=== PATIENT | female | born 1955 | race Caucasian/White ===

== ENCOUNTER 2017-04-18 00:28 | Day surgery (SDC) | payer OTHER ==
[~2017-04-18 00:28] MED LIST: ASCO500 PO; B-121000 MC1 SL; BIOTIN1000 MCG PO; CENTRUM SILVER1 EAC3 PO; CHOL10002 PO; CLON.5 PO; CYAN1000 PO; FURO40 PO; Fludrocortison0.1 MG PO; HYDCOR20 PO; MIDO5 PO; NAPR500EC PO; OXYACE5T PO; Omeprazole20 M1 PO; VITAMIN D-32000 UNIT PO; VITAMINS; XARELTO10 MG PO; XARELTO20 MG PO
[2017-10-15] MEDS ORDERED: PROBIOTIC1 EAC3 PO (16:59)
== END 2017-04-18 10:27 | disposition home or self-care (01) ==
LOC: ATC 00:28
DX: E27.3 Drug-induced adrenocortical insufficiency (principal); I95.1 Orthostatic hypotension; K21.9 Gastro-esophageal reflux disease without esophagitis; Z87.891 Personal history of nicotine dependence
CPT/HCPCS: 36415; 80400; 82533; 96372; J0834

== ENCOUNTER 2017-10-30 06:04 | Day surgery (SDC) | payer OTHER ==
[~2017-10-30] VITALS: Ht 165.1 cm; Wt 72.6 kg
[~2017-10-30 06:04] MED LIST changes: +PROBIOTIC1 EAC3 PO
== END 2017-10-30 09:23 | disposition home or self-care (01) ==
LOC: ORSCMMR 06:04
PROVIDERS: Surgery
PROC: 0HB0XZZ Excision of Scalp Skin, External Approach (ICD-10-PCS; principal; 2017-10-30 07:30)
PROC: 0HQ0XZZ Repair Scalp Skin, External Approach (ICD-10-PCS; principal; 2017-10-30 07:30)
DX: L72.11 Pilar cyst (principal); E11.22 Type 2 diabetes mellitus with diabetic chronic kidney disease; N18.9 Chronic kidney disease, unspecified; Z87.891 Personal history of nicotine dependence; K21.9 Gastro-esophageal reflux disease without esophagitis; Z79.899 Other long term (current) drug therapy
CPT/HCPCS: 82947; 88304; J0690; J1100; J2250; J2405; J3010; J7120

== ENCOUNTER → 2018-04-26 | Outpatient (CLI) | payer OTHER ==
[2018-04-26 15:38] LABS: Alanine Aminotransfer (ALT/SGP 21 U/L (12-78); Albumin, Blood 3.9 g/dL (3.4-5.0); Albumin/Globulin Ratio 1.3 (0.8-1.8); Alk Phos 85 U/L (50-136); Amylase, Blood 48 U/L (25-115); Anion Gap 7 mmol/L (6-16); Aspartate Aminotrans (AST/SGOT 12 U/L (12-37); Bilirubin, Total 0.7 mg/dL (0.1-1.0); Blood Urea Nitrogen 15 mg/dL (8-24); Bun/Creatinine Ratio 19.3 (12.0-20.0); CO2, Blood 25 mmol/L (21-32); Calcium, Blood 9.2 mg/dL (8.5-10.1); Chloride, Blood 106 mmol/L (98-108); Creatinine, Blood 0.78 mg/dL (0.40-1.00); Globulin, Blood 3.1 g/dL (2.2-4.0); Glomerular Filtration Rate >60 (60-); Glucose, Blood 89 mg/dL (70-99); Potassium, Blood 4.6 mmol/L (3.5-5.5); Sodium, Blood 138 mmol/L (136-145)
== END | disposition home or self-care (01) ==
LOC: LAB SHORT 14:21 → LAB 14:21
PROVIDERS: Hospitalist
DX: R10.13 Epigastric pain (principal)
CPT/HCPCS: 80053; 82150; 83690

== ENCOUNTER 2019-10-24 19:12 | Inpatient (IN) | payer OTHER ==
[~2019-10-24] VITALS: Ht 165.1 cm; Wt 81.2 kg
[2019-10-24] MEDS ORDERED: IBUP200 PO (19:36)
[2019-10-24 20:00] LABS: Hematocrit 39.6 % (33.0-51.0); Hemoglobin 13.2 g/dL (11.5-16.0); Mean Corpuscular HGB 31.3 pg (26.0-34.0); Mean Corpuscular HGB Conc 33.3 g/dL (31.5-36.5); Mean Corpuscular Volume 94 fL (80-100); Mean Platelet Volume 9.8 fL (9.1-12.4); Platelet Count 175 K/mm3 (150-400); RDW Coefficient Variation 12.1 % (11.7-14.2); RDW Standard Deviation 42.1 fL (35.1-46.3); Red Blood Cell Count 4.22 M/mm3 (3.80-5.20)
[2019-10-24 20:04] LABS: Source, Urine Catheter
[2019-10-24 20:07] LABS: Appearance, Urine Clear (Clear); Bilirubin, Urine Neg (Neg); Blood, Urine Neg (Neg); Color, Urine Yellow (P-Yellow); Glucose Qualitative, Urine Neg (Neg); Ketones, Urine 4+ (Neg); Leukocyte Esterase, Urine Neg (Neg); Nitrite, Urine Neg (Neg); Protein, Urine 2+ (Neg); Urobilinogen, Urine 1+ (Normal)
[2019-10-24 20:11] LABS: Alanine Aminotransfer (ALT/SGP 21 U/L (12-78); Albumin, Blood 3.4 g/dL (3.4-5.0); Alk Phos 74 U/L (50-136); Anion Gap 8 mmol/L (6-16); Aspartate Aminotrans (AST/SGOT 17 U/L (12-37); Bilirubin, Total 0.7 mg/dL (0.1-1.0); Blood Urea Nitrogen 16 mg/dL (8-24); Bun/Creatinine Ratio 17.4 (12.0-20.0); CO2, Blood 22 mmol/L (21-32); Calcium, Blood 8.5 mg/dL (8.5-10.1); Chloride, Blood 107 mmol/L (98-108); Creatinine, Blood 0.92 mg/dL (0.40-1.00); Globulin, Blood 3.5 g/dL (2.2-4.0); Glomerular Filtration Rate >60 (60-); Glucose, Blood 125 mg/dL (70-99); Potassium, Blood 3.1 mmol/L (3.5-5.5); Sodium, Blood 137 mmol/L (136-145); Total Protein, Blood 6.9 g/dL (6.4-8.2)
[2019-10-24 20:17] LABS: Bacteria Rare /hpf; Mucus Light (0-Heavy); Red Blood Cells, Urine Not Seen /hpf (0-2); Squamous Epithelial Cells Rare /hpf (Few); White Blood Cells, Urine 0-2 /hpf (0-5)
[2019-10-24 20:21] LABS: BAND PERCENT MAN 31 % (0-8); BASOPHILS PERCENT MAN 0 % (0-2); EOSINOPHILS PERCENT MAN 0 % (0-6); LYMPHOCYTES ABSOLUTE MAN 0.15 K/mm3 (0.84-5.20); LYMPHOCYTES PERCENT MAN 2 % (21-46); MONOCYTES ABSOLUTE MAN 0.38 K/mm3 (0.16-1.47); MONOCYTES PERCENT MAN 5 % (4-13); NEUTROPHILS ABSOLUTE MAN 7.06 K/mm3 (1.96-9.15); SEG NEUTROPHILS PERCENT MAN 62 % (41-73); TOTAL CELLS COUNTED 100
[2019-10-24] MEDS ORDERED: MIDO5 PO (22:09)
[2019-10-24 23:47] LABS: Adenovirus Not Detected (NOT DETECT); Bordetella pertussis Not Detected (NOT DETECT); Chlamydophila pneumoniae Not Detected (NOT DETECT); Coronavirus 229E Not Detected (NOT DETECT); Coronavirus HKU1 Not Detected (NOT DETECT); Coronavirus NL63 Not Detected (NOT DETECT); Coronavirus OC43 Not Detected (NOT DETECT); Human Metapneumovirus Not Detected (NOT DETECT); Human Rhinovirus/Enterovirus Not Detected (NOT DETECT); Influenza A/2009-H1 Not Detected (NOT DETECT); Influenza A/H1 Not Detected (NOT DETECT); Influenza A/H3 Not Detected (NOT DETECT); Influenza B Not Detected (NOT DETECT); Mycoplasma pneumoniae Not Detected (NOT DETECT); Parainfluenza Virus 1 Not Detected (NOT DETECT); Parainfluenza Virus 2 Not Detected (NOT DETECT); Parainfluenza Virus 3 Not Detected (NOT DETECT); Parainfluenza Virus 4 Not Detected (NOT DETECT); Respiratory Syncytial Virus Not Detected (NOT DETECT); SARS-Cov-2 (COVID-19), BioFire Not Detected (NOT DETECT)
[2019-10-25 00:14] LABS: Adenovirus F 40/41 Not Detected (NOT DETECT); Astrovirus Not Detected (NOT DETECT); Campylobacter Sp Not Detected (NOT DETECT); Cryptosporidium Not Detected (NOT DETECT); Cyclospora Cayetanensis Not Detected (NOT DETECT); E. Coli O157 Not Detected (NOT DETECT); Entamoeba Histolytica Not Detected (NOT DETECT); Enteroaggregative E. coli-EAEC Not Detected (NOT DETECT); Enteropathogenic E. coli-EPEC Not Detected (NOT DETECT); Enterotoxigenic E. coli-ETEC Not Detected (NOT DETECT); Giardia Lamblia Not Detected (NOT DETECT); Norovirus GI/GII Not Detected (NOT DETECT); Plesiomonas Shigelloides Not Detected (NOT DETECT); Rotavirus A Not Detected (NOT DETECT); Salmonella Sp Detected (NOT DETECT); Sapovirus Not Detected (NOT DETECT); Shiga Toxin-prod E. coli-STEC Not Detected (NOT DETECT); Shigella/Enteroin E. coli-EIEC Not Detected (NOT DETECT); Vibrio Cholerae Not Detected (NOT DETECT); Vibrio Sp Not Detected (NOT DETECT); Yersinia Enterocolitica Not Detected (NOT DETECT)
[2019-10-25 05:10] LABS: Hematocrit 34.9 % (33.0-51.0); Hemoglobin 11.6 g/dL (11.5-16.0); Mean Corpuscular HGB 31.3 pg (26.0-34.0); Mean Corpuscular HGB Conc 33.2 g/dL (31.5-36.5); Mean Corpuscular Volume 94 fL (80-100); Mean Platelet Volume 9.8 fL (9.1-12.4); Platelet Count 143 K/mm3 (150-400); RDW Coefficient Variation 12.4 % (11.7-14.2); RDW Standard Deviation 43.1 fL (35.1-46.3); Red Blood Cell Count 3.71 M/mm3 (3.80-5.20); White Blood Cell Count 3.35 K/mm3 (4.00-11.30)
[2019-10-25 05:43] LABS: BAND PERCENT MAN 39 % (0-8); BASOPHILS ABSOLUTE MAN 0.03 K/mm3 (0.00-0.23); BASOPHILS PERCENT MAN 1 % (0-2); EOSINOPHILS PERCENT MAN 0 % (0-6); LYMPHOCYTES ABSOLUTE MAN 0.13 K/mm3 (0.84-5.20); LYMPHOCYTES PERCENT MAN 4 % (21-46); MONOCYTES ABSOLUTE MAN 0.26 K/mm3 (0.16-1.47); MONOCYTES PERCENT MAN 8 % (4-13); NEUTROPHILS ABSOLUTE MAN 2.91 K/mm3 (1.96-9.15); SEG NEUTROPHILS PERCENT MAN 48 % (41-73); TOTAL CELLS COUNTED 100
--- NOTE | 2019-10-25 06:44 | NUR ---
END OF SHIFT SUMMARY PATIENT WAS ADMITTED AT 0221 THIS MORNING FOR HYPOVOLEMIA R/T DIARRHEA. THE PATIENT'S STOOL SAMPLE CAME PACK POSITIVE FOR SALMONELLA. THE PATIENT IS ALERT AND ORIENTED. SHE IS DENYING PAIN. SOME DISCOMFORT RELATED TO SHIVERING WHEN ICE PACKS APPLIED. FENTANYL GIVEN X 1. HER BP IS MARGINAL AT TIMES. NSR WITH A HR IN THE 70S-80S. TMAX WAS 102.3 F. THE PATIENT IS NOW NORMOTHERMIC. 1 GRAM OF TYLENOL GIVEN. PATIENT DENIES ABDOMINAL PAIN OR TENDERNESS. RECTAL TUBE IN PLACE WITH OVER 1 L OUTPUT THIS SHIFT. ONE INCONTINENT URINE THIS AM. NPO AT THIS TIME. SKIN IS INTACT. PIV X [address] LR INFUSING AT 200 MLS/HR. POTASSIUM WAS LOW IN THE ER. IT IS BEING RECHECKED NOW THAT THE FIRST REPLACEMENT BAG HAS FINISHED.
[2019-10-25 07:44] LABS: Bun/Creatinine Ratio 15.8 (12.0-20.0); Creatinine, Blood 1.01 mg/dL (0.40-1.00); Potassium, Blood 3.5 mmol/L (3.5-5.5)
--- NOTE | 2019-10-25 08:48 | NUR ---
ASSUMED CARE OF PT AT 0700. REPORT FROM KALEIGH ESCOBAR. PT RESTING IN BED. WAKES c VERBAL STIMULI. A&OX 3. ANSWERS QUESTIONS APPROPRIATELY. DENIES COMPLAINTS. REPORTS "BUBBLING" IN STOMACH. ABD SOFT, NON TENDER. BT X 4. LR INFUSING AT 200 ML/HR. PT P/W/D. VSS. RECTAL TUBE c LIQUID GREEN/BROWN STOOL OUT. DR SHEARER ROUNDED THIS AM, OK FOR PO FLUIDS. PT STATUS CHANGED TO MED s TELE. WILL CONTINUE TO MONITOR.
--- NOTE | 2019-10-25 09:40 | NUR ---
REPORT TO VINNY ESCOBAR. PT TRANSFERRED TO MEDICAL FLOOR VIA BED. ALL BELONGINGS c PT.
--- NOTE | 2019-10-25 17:41 | NUR ---
SHIFT SUMMARY. 0968 PT TRANSFERED FROM ICU TO MEDICAL FLOOR VIA BED, SLIDE TRANSFERED TO MEDICAL FLOOR BED WITHOUT ISSUE. RECTAL TUBE IN PLACE, PATENT, DRAINING LARGE AMOUNT OF GREEN LIQUID STOOL, MILD LEAKAGE AROUND TUBE. PT REPORTS INTERMITTENT ABD CRAMPING THAT IS TOLERABLE. PT DENIES N/V/SOB. PT REPORTS POOR APPETITE, PT TOLERATED SOME CLEAR LIQUIDS FOR LUNCH. IV HYDRATION CONTINUES TO INFUSE WITHOUT ISSUE. NO NEW CHANGES OR CONCERNS.
--- NOTE | 2019-10-26 04:34 | NUR ---
SHIFT SUMMARY LYING IN LOW FOWLERS WITH EYES OPEN. FLEXISEAL BAG FULL, NEW ONE PLACED. NEW BAG IMMEDIATELY HALF FULL. NEW BAG NOT AVAILABLE ON UNIT, CALLED Angelina ORTIZ RN IN ICU WHO SENT A NEW BAG. PARTIAL LINEN CHANGE COMPLETED AFTER ANA CARE. TOLERATED WELL. HAS RESTED WELL THIS SHIFT. NO C/O PAIN, DISCOMFORT, OR FURTHER NEEDS AT THIS TIME. SAFETY MEASURES IN PLACE. WILL CONTINUE TO MONITOR ANF GIVE HAND OFF TO ONCOMING SHIFT USING SBAR DUING BEDSIDE REPORT.
[2019-10-26 05:11] LABS: Hematocrit 37.2 % (33.0-51.0); Hemoglobin 12.1 g/dL (11.5-16.0); Mean Corpuscular HGB 30.9 pg (26.0-34.0); Mean Corpuscular HGB Conc 32.5 g/dL (31.5-36.5); Mean Corpuscular Volume 95 fL (80-100); Mean Platelet Volume 10.1 fL (9.1-12.4); Platelet Count 147 K/mm3 (150-400); RDW Coefficient Variation 12.6 % (11.7-14.2); RDW Standard Deviation 44.2 fL (35.1-46.3); Red Blood Cell Count 3.91 M/mm3 (3.80-5.20); White Blood Cell Count 3.77 K/mm3 (4.00-11.30)
[2019-10-26 05:45] LABS: Albumin, Blood 2.6 g/dL (3.4-5.0); Albumin/Globulin Ratio 0.7 (0.8-1.8); Bilirubin, Total 0.7 mg/dL (0.1-1.0); Bun/Creatinine Ratio 14.7 (12.0-20.0); Creatinine, Blood 1.09 mg/dL (0.40-1.00); Globulin, Blood 3.6 g/dL (2.2-4.0); Potassium, Blood 3.4 mmol/L (3.5-5.5); Total Protein, Blood 6.2 g/dL (6.4-8.2)
[2019-10-26 05:49] LABS: BAND PERCENT MAN 49 % (0-8); BASOPHILS ABSOLUTE MAN 0.03 K/mm3 (0.00-0.23); BASOPHILS PERCENT MAN 1 % (0-2); EOSINOPHILS PERCENT MAN 0 % (0-6); LYMPHOCYTES ABSOLUTE MAN 0.37 K/mm3 (0.84-5.20); LYMPHOCYTES PERCENT MAN 10 % (21-46); MONOCYTES ABSOLUTE MAN 0.26 K/mm3 (0.16-1.47); MONOCYTES PERCENT MAN 7 % (4-13); NEUTROPHILS ABSOLUTE MAN 3.09 K/mm3 (1.96-9.15); SEG NEUTROPHILS PERCENT MAN 33 % (41-73); TOTAL CELLS COUNTED 100
--- NOTE | 2019-10-26 12:24 | NUR ---
PT REQUESTING DIET ADVANCEMENT. ORDER IN CHART FOR ADVANCE DIET TOLLERATED. PT HAS NO NAUSEA OR VOMITING AND IS REQUESTING MASHED POTATOES AND GRAVY. CHSNGED DIET ORDER ACCORDING TO ADVANCE DIET TOLLERATED AND THE PT REQUEST WILL UPDATE BEDSIDE RN WHEN SHE RETURNS.
--- NOTE | 2019-10-26 17:21 | NUR ---
PT AOX4 AND COOPERATIVE OF CARE. PT HAS BEEN TOLERATED RECTAL TUBE AT THIS TIME. TUBE WAS DEFLATED AND REPOSITIONED TODAY. PT CONTINUES TO HAVE WATERY GREEN STOOL. PT CAN CALL APPROPRIATELY AND IS RESTING IN BED THIS IS THE MOST COMFORTABLE AT THIS TIME. PT TREATED FOR NAUSEA X1. WILL CONTINUE TO MONITOR.
[2019-10-27 05:20] LABS: Hematocrit 34.5 % (33.0-51.0); Hemoglobin 11.5 g/dL (11.5-16.0); Mean Corpuscular HGB Conc 33.3 g/dL (31.5-36.5); Mean Corpuscular Volume 93 fL (80-100); Mean Platelet Volume 10.2 fL (9.1-12.4); Platelet Count 140 K/mm3 (150-400); RDW Coefficient Variation 12.3 % (11.7-14.2); RDW Standard Deviation 42.5 fL (35.1-46.3); Red Blood Cell Count 3.71 M/mm3 (3.80-5.20); White Blood Cell Count 2.71 K/mm3 (4.00-11.30)
[2019-10-27 05:50] LABS: Albumin, Blood 2.6 g/dL (3.4-5.0); Albumin/Globulin Ratio 0.9 (0.8-1.8); Bilirubin, Total 0.6 mg/dL (0.1-1.0); Bun/Creatinine Ratio 13.3 (12.0-20.0); Calcium, Blood 8.1 mg/dL (8.5-10.1); Creatinine, Blood 1.05 mg/dL (0.40-1.00); Phosphorus, Blood 1.8 mg/dL (2.5-4.9); Potassium, Blood 3.1 mmol/L (3.5-5.5); Total Protein, Blood 5.6 g/dL (6.4-8.2)
[2019-10-27 06:11] LABS: BAND PERCENT MAN 51 % (0-8); BASOPHILS ABSOLUTE MAN 0.05 K/mm3 (0.00-0.23); BASOPHILS PERCENT MAN 2 % (0-2); EOSINOPHILS ABSOLUTE MAN 0.02 K/mm3 (0.00-0.68); EOSINOPHILS PERCENT MAN 1 % (0-6); LYMPHOCYTES ABSOLUTE MAN 0.29 K/mm3 (0.84-5.20); LYMPHOCYTES PERCENT MAN 11 % (21-46); METAMYELOCYTE ABSOLUTE MAN 0.02 K/mm3 (0.00-0.00); METAMYELOCYTE PERCENT MAN 1 % (0-0); MONOCYTES ABSOLUTE MAN 0.24 K/mm3 (0.16-1.47); MONOCYTES PERCENT MAN 9 % (4-13); NEUTROPHILS ABSOLUTE MAN 2.05 K/mm3 (1.96-9.15); SEG NEUTROPHILS PERCENT MAN 25 % (41-73); TOTAL CELLS COUNTED 100
--- NOTE | 2019-10-27 07:38 | NUR ---
SHIFT SUMMARY PATIENT ALERT AND ORIENTED. MEDICATED ONCE PER EMAR FOR PAIN. PATIENT'S RECTAL TUBE WAS LEAKING AND NOT PATENT SO IT WAS REPLACED WITH A NEW RECTAL TUBE WHICH IS NOW PATENT AND DRAINING TO GRAVITY. BED IN LOWEST POSITION WITH WHEELS LOCKED. CALL LIGHT WITHIN REACH. REPORT GIVEN TO ONCOMING RN.
--- NOTE | 2019-10-27 17:49 | NUR ---
PT AOX4 AND COOPERATIVE OF CARE. PT CAN GET UP WITH HELP TO BEDSIDE COMODE AND VOID. RECTAL TUBE CONTINUES TO DRAIN. PT REPORTS MORE STOMACH GAS TODAY HE BMs CONTINUE TO BE DARK GREEN AND WATERY. PT CALL APPRIOPRIATELY AND DENIES ANY PAIN OR NAUSEA AT THIS TIME. WILL CONTINUE TO MONITOR.
--- NOTE | 2019-10-27 19:09 | NUR ---
READJUSTED RECTAL TUBE BY DEFLATING AND REPOSITIONING. PT TOLERATED WELL.
--- NOTE | 2019-10-27 20:20 | NUR ---
ASSUMED CARE. GENEVA REPORTS THE RECTAL TUBE IS NOT WORKING. ASSISTED THE LADLE CLEANER WITH ATTENDS CHANGE, CLEANING UP AROUND THE TUBE. SHE REPORTS THAT THE TUBE IS UNCOMFORTABLE, REMOVED THE TUBE. SHE ASKED IF SHE COULD GET UP AND USE THE BSC. SHE WAS VERY STEADY AT DOING THIS. NO NAUSEA, NO DIZZINESS. WE DISCUSSED LEAVING THE TUBE OUT TO GIVE HER A REST. WILL RECHECK TO SEE IF SHE CAN GET TO THE BSC. ABDOMIN DISTENTION IMPROVING. CALL LIGHT IN REACH.
--- NOTE | 2019-10-27 21:39 | NUR ---
GENEVA HAS BEEN ABLE TO GET UP TO THE BSC ON HER OWN. SHE REPORTS HAVING THE TUBE OUT SHE IS ABLE TO FEEL SOME SIGNS OF HER NEED TO HAVE A BM. SO FAR NO ACCIDENTS. WILL LEAVE TUBE OUT FOR THE NIGHT.
[2019-10-28 05:32] LABS: Hematocrit 35.9 % (33.0-51.0); Mean Corpuscular HGB 30.6 pg (26.0-34.0); Mean Corpuscular HGB Conc 33.4 g/dL (31.5-36.5); Mean Corpuscular Volume 92 fL (80-100); Mean Platelet Volume 10.2 fL (9.1-12.4); Platelet Count 169 K/mm3 (150-400); RDW Coefficient Variation 12.4 % (11.7-14.2); RDW Standard Deviation 41.7 fL (35.1-46.3); Red Blood Cell Count 3.92 M/mm3 (3.80-5.20); White Blood Cell Count 2.85 K/mm3 (4.00-11.30)
[2019-10-28 05:48] LABS: Albumin, Blood 2.6 g/dL (3.4-5.0); Anion Gap 6 mmol/L (6-16); Blood Urea Nitrogen 8 mg/dL (8-24); Bun/Creatinine Ratio 10.1 (12.0-20.0); CO2, Blood 24 mmol/L (21-32); Chloride, Blood 109 mmol/L (98-108); Creatinine, Blood 0.79 mg/dL (0.40-1.00); Glomerular Filtration Rate >60 (60-); Glucose, Blood 76 mg/dL (70-99); Phosphorus, Blood 1.9 mg/dL (2.5-4.9); Potassium, Blood 2.8 mmol/L (3.5-5.5); Sodium, Blood 139 mmol/L (136-145)
--- NOTE | 2019-10-28 06:18 | NUR ---
SHIFT SUMMARY: RECTAL TUBE LEAKAGE NOTED AT START OF SHIFT, WITH REPORTED PAIN AND DISCOMFORT. REMOVED TUBE, ATTENDS PLACED. PATIENT ASKED TO LEAVE OUT. SINCE THEN SHE HAS BEEN ABLE TO TELL WHEN SHE HAS TO GO, AND HAS BEEN GETTING UP TO BSC ALL NIGHT. LARGE AMOUNTS OF BROWNISH LIQUID STOOLS THROUGHOUT THE NIGHT. UNFORTUNALY ALWAYS MIXED WITH URINE. MOST OF THE TIME EMPTIED HALF OF COMMODE FULL A COUPLE OF TIMES TONIGHT. NO PAIN NOTED, ABDOMIN FEELING BETTER, NO NAUSEA THIS SHIFT. TOLERATING SOFT DIET. IV FLUIDS CONTINUED TO INFUSE. k+ THIS AM 2.8, WILL CALL MD. NO OTHER ACUTE CHANGES TO REPORT. CALL LIGHT REMAINS IN REACH.
[2019-10-28 06:19] LABS: BASOPHILS PERCENT MAN 0 % (0-2); EOSINOPHILS ABSOLUTE MAN 0.08 K/mm3 (0.00-0.68); EOSINOPHILS PERCENT MAN 3 % (0-6); MONOCYTES ABSOLUTE MAN 0.42 K/mm3 (0.16-1.47); MONOCYTES PERCENT MAN 15 % (4-13); SEG NEUTROPHILS PERCENT MAN 48 % (41-73); TOTAL CELLS COUNTED 100
[2019-10-28 06:20] LABS: BAND PERCENT MAN 22 % (0-8); LYMPHOCYTES ABSOLUTE MAN 0.34 K/mm3 (0.84-5.20); LYMPHOCYTES PERCENT MAN 12 % (21-46); NEUTROPHILS ABSOLUTE MAN 1.99 K/mm3 (1.96-9.15)
--- NOTE | 2019-10-28 06:30 | NUR ---
DR. VERDE ORDERED 40 KCL POX1, WILL ADMINISTER.
[2019-10-28 10:14] LABS: Albumin, Blood 2.9 g/dL (3.4-5.0); Anion Gap 6 mmol/L (6-16); Blood Urea Nitrogen 7 mg/dL (8-24); Bun/Creatinine Ratio 8.5 (12.0-20.0); CO2, Blood 24 mmol/L (21-32); Calcium, Blood 8.4 mg/dL (8.5-10.1); Chloride, Blood 111 mmol/L (98-108); Creatinine, Blood 0.83 mg/dL (0.40-1.00); Glomerular Filtration Rate >60 (60-); Glucose, Blood 144 mg/dL (70-99); Phosphorus, Blood 1.1 mg/dL (2.5-4.9); Potassium, Blood 2.9 mmol/L (3.5-5.5); Sodium, Blood 141 mmol/L (136-145)
[2019-10-28 13:15] LABS: Albumin, Blood 2.9 g/dL (3.4-5.0); Anion Gap 5 mmol/L (6-16); Blood Urea Nitrogen 7 mg/dL (8-24); Bun/Creatinine Ratio 7.8 (12.0-20.0); CO2, Blood 26 mmol/L (21-32); Calcium, Blood 8.6 mg/dL (8.5-10.1); Chloride, Blood 109 mmol/L (98-108); Glomerular Filtration Rate >60 (60-); Glucose, Blood 97 mg/dL (70-99); Phosphorus, Blood 1.6 mg/dL (2.5-4.9); Potassium, Blood 2.9 mmol/L (3.5-5.5); Sodium, Blood 140 mmol/L (136-145)
--- NOTE | 2019-10-28 13:26 | NUR ---
Patient is lying in bed and alert. Patient tells me about her Salmonella poisoning and where she thinks she may have acquired it. She tells me about the many jobs she has had over her 45 years of working (including 14 years employed by [employer]). Patient also discusses her gloria tradition coming from a long line of Christians and currently patient attends [employer] in [place]. Patient shares about how drained she is emotionally from feeling so miserable physically. I listen empathically, reinforce helpful attitudes and practices and provide pastoral drug and alcohol counselor and prayer. Patient responds well and shows signs of a uplifted spirit and an elevated mood. I will continue to remain available to patient and family.
--- NOTE | 2019-10-28 17:14 | NUR ---
SHIFT SUMMARY PT A/O X4; IND TO THE BSC. PT CONT. TO HAVE FREQUENT LIQUID STOOLS. DENIES ANY NAUSEA OR ABD PAIN. PT RECIEVING POTASSIUM/PHOS VIA IV. PT ALSO CONTINUES TO RECIEVE IV FLUIDS. VSS. EVENING MIDODRINE HELD DUE TO SBP BEING OVER 120. PT RESTING CONFORTABLY IN BED FOR THE MAJORITY OF THE SHIFT. WILL CONTINUE TO MONITOR.
--- NOTE | 2019-10-28 20:15 | NUR ---
ASSUMED CARE. GENEVA REPORTS SHE IS DOING A SLIGHT BETTER TODAY. NO NAUSEA, TOLERATING HER DIET. FEELS THE OUTPUT IN STOOL IS DECREASED. STILL VERY LIQUID WITH CHUNKS. ENCOURAGED MORE INTAKE. ADMINISTERED MEDS, SL IV AND COVERED IV SITES. SHE GOT UP TO TAKE SHOWER. WILL START ANTIBOTIC WHEN SHE IS OUT. NO PAIN NOTED. WILL CONTINUE TO MONITOR.
--- NOTE | 2019-10-29 05:56 | NUR ---
SHIFT SUMMARY: REPORTS FEELING BETTER, ABLE TO DO MORE FOR SELF. ABLE TO CONTINUE TO USE BSC OR BATHROOM WITH NO ACCIDENTS. SHOWER TAKEN, PT DID REPORT DECREASE IN ENERGY AFTER. SEAN CONTINUES TO BE VERY WATERY WITH CHUNKS, YELLOW IN COLOR AND MORE ODOR TO IT. OUTPUT: 1200ML OF STOOL; 700 ML OF URINE. INTAKE 240ML PO; 1940 IV FLUIDS THIS SHIFT. CONTINUE TO ENCOURAGE MORE PO INTAKE TO HELP THICKEN UP STOOL. DENIED ANY NAUSEA OR PAIN. SLEPT OFF AND ON. VS WNL. AFEBRILE. FLUIDS CONTINUED. CALL LIGHT REMAINED IN REACH AND USED APPROPIATLY.
[2019-10-29 08:48] LABS: Albumin, Blood 2.9 g/dL (3.4-5.0); Anion Gap 5 mmol/L (6-16); Blood Urea Nitrogen 7 mg/dL (8-24); Bun/Creatinine Ratio 9.5 (12.0-20.0); CO2, Blood 25 mmol/L (21-32); Calcium, Blood 8.7 mg/dL (8.5-10.1); Chloride, Blood 110 mmol/L (98-108); Creatinine, Blood 0.74 mg/dL (0.40-1.00); Glomerular Filtration Rate >60 (60-); Glucose, Blood 94 mg/dL (70-99); Phosphorus, Blood 2.4 mg/dL (2.5-4.9); Potassium, Blood 2.8 mmol/L (3.5-5.5); Sodium, Blood 140 mmol/L (136-145)
--- NOTE | 2019-10-29 15:50 | NUR ---
PT IS A/OX3, PLEASANT AND COOPERATIVE, THE PT IS UP IND TO THE BSC, THE PT CONTINUES TO HAVE WATERY GREEN COLORED FREQUANT STOOLS, THE PT DENIES ANY PAIN OR N/V, HOWEVER THE PT REPORTED A SORE AREA ON HER RIGHT THIGH AREA, NO REDNESS WAS NOTIECED AT THE SITE AT THIS TIME , WILL CONTINUE TO MONITOR,THE PT APPEARS TO BE BREATHING EASILY ON RA AT THIS TIME, CALL LIGHT IN REACH, NO OTHER CHANGES NOTICED SO FAR THIS SHIFT
[2019-10-29 16:01] LABS: Albumin, Blood 2.8 g/dL (3.4-5.0); Anion Gap 9 mmol/L (6-16); Blood Urea Nitrogen 6 mg/dL (8-24); Bun/Creatinine Ratio 7.6 (12.0-20.0); CO2, Blood 20 mmol/L (21-32); Calcium, Blood 8.1 mg/dL (8.5-10.1); Chloride, Blood 110 mmol/L (98-108); Creatinine, Blood 0.79 mg/dL (0.40-1.00); Glomerular Filtration Rate >60 (60-); Glucose, Blood 108 mg/dL (70-99); Phosphorus, Blood 4.4 mg/dL (2.5-4.9); Potassium, Blood 3.3 mmol/L (3.5-5.5); Sodium, Blood 139 mmol/L (136-145)
--- NOTE | 2019-10-29 20:52 | NUR ---
ASSUMED CARE. GENEVA IS CONTINUING TO DO WELL. SHE IS WANTING TO GO HOME. REPORTS SHE ATE MORE TODAY. STILL UP TO BSC MULTIPLE TIMES WIHT VERY WATER LIKE STOOLS. 1 EPISODE OF NAUSEA. DISCUSSED IMODIUM TX. WILL ASK MD. IV LEAKING AND PAIN WITH FLUSH. STOPPED FLUIDS AND ANTIBOTIC. DC'D IV, INTACT. CALLED FOR ASSISTANCE TO START IV DUE TO POOR VEINS. STILL INDEPENDENT IN THE ROOM. ENCOURAGE TO DRINK FLUIDS. SHE STATES SHE IS AFRAID TO DRINK MORE SHE OR EAT DUE TO IMMEDIATLY HAVING TO GET UP AND HAVE BM. WILL SPEAK TO MD REGARDING MEDS. CALL LIGHT IN REACH.
--- NOTE | 2019-10-29 22:44 | NUR ---
SPOKE TO DR. VERDE, ORDER FOR IMMODIUM. STATES TO CONTINUE IV FLUIDS. FIRST DOSE OF 4MG GIVEN NOW. PRN ORDER FOR EVERY 4 HOURS THEREAFTER.
[2019-10-30 06:12] LABS: Albumin, Blood 2.5 g/dL (3.4-5.0); Anion Gap 8 mmol/L (6-16); Blood Urea Nitrogen 6 mg/dL (8-24); Bun/Creatinine Ratio 7.8 (12.0-20.0); CO2, Blood 24 mmol/L (21-32); Calcium, Blood 8.1 mg/dL (8.5-10.1); Chloride, Blood 111 mmol/L (98-108); Creatinine, Blood 0.77 mg/dL (0.40-1.00); Glomerular Filtration Rate >60 (60-); Glucose, Blood 86 mg/dL (70-99); Phosphorus, Blood 3.2 mg/dL (2.5-4.9); Potassium, Blood 2.8 mmol/L (3.5-5.5); Sodium, Blood 143 mmol/L (136-145)
--- NOTE | 2019-10-30 06:25 | NUR ---
SHIFT SUMMARY: GENEVA CONTINUES TO FEEL BETTER, EXCEPT FATIQUED MOST OF TIME. IV SITES LOST AT START OF SHIFT. NEW ONE STARTED IN RIGHT FA. REQUEST FOR IMODIUM NOTED, DR. VERDE CALLED AND ORDER RECEIVED FOR IMODIUM. ALSO STATED TO CONTINUE FLUIDS. NO NAUSEA THIS SHIFT. INTAKE ORAL WAS 500CC, IV WAS 1849. OUTPUT IS A ESTIMATED BETWEEN URINE AND STOOL SHE TYPICALLY HAS A MIXTURE OF BOTH. ESTIMATED AMOUNTS WERE 700 URINE, 2300 STOOL. FIRST DOSE OF IMODIUM WAS GIVEN PRIOR TO BED, SHE WAS ABLE TO SLEEP MOST OF NIGHT WITH OUT NEED TO GET UP TO [facility]. GAVE SECOND DOSE THIS AM AFTER ANOTHER BM. SHE DID REPORT FEAR OF DRINKING OR EATING DUE TO DUMPING SYNDROME RIGHT AFTERWARDS. EDUCATED ON IMPORTANCE OF HYDRATION AND INTAKE FOR BODY TO HEAL. LABS K+ DROPPED TO 2.8, PHOSPHORUS ALSO DROPPED BUT NORMAL AT 3.2. WILL REPORT IT TO MD. NO OTHER CHANGES TO REPORT. CALL LIGHT IN REACH.
--- NOTE | 2019-10-30 06:44 | NUR ---
DR. FERNANDEZ CALLED REGARDS DROP OF POTASSIUM FROM 3.3 TO 2.8 THIS AM. ORDER FOR 40MEQ PO NOW AND 40 MEQ IV NOW TO BE ADMINISTERED SLOWLY. WILL PASS ONTO DAY SHIFT.
--- NOTE | 2019-10-30 15:32 | NUR ---
Patient is sitting up in bed and tells me that she is still dealing with the same health issues as she has since her arrival. She explains that she no longer has the fever, she feels stronger and she is more of an appetite but she says, "Whatever comes in immediately comes out." Patient tells me that she is hoping this will resolve soon. Patient lights up when she talks about God and her gloria and encourages herself as she speaks. I provide therapeutic listening, companionship, pastoral personal counselor and prayer. Patient responds well and shows signs of being encouraged. I will remain available to patient and family.
--- NOTE | 2019-10-30 18:11 | NUR ---
PT CONTINUES WITH MULTIPLE LIQUID STOOLS, HAS TAKEN SOME IMMODIUM THIS SHIFT AND DOES REPORT SOME RELIEF. 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 VENOUS DUPLEX COMPLETED, SEE CHART FOR RESULTS. KPHOS RIDER GIVEN FOR KCL OF 2.8, PT TOLERATED WELL. LR IS RUNNING AT 200 ML/HR. NO ACUTE CHANGES NOTED THIS SHIFT, WILL CONTINUE TO MONITOR AND REPORT TO ONCOMING LUZ
[2019-10-31 05:59] LABS: Albumin, Blood 2.4 g/dL (3.4-5.0); Anion Gap 8 mmol/L (6-16); Blood Urea Nitrogen 6 mg/dL (8-24); Bun/Creatinine Ratio 7.1 (12.0-20.0); CO2, Blood 24 mmol/L (21-32); Calcium, Blood 7.8 mg/dL (8.5-10.1); Chloride, Blood 110 mmol/L (98-108); Creatinine, Blood 0.84 mg/dL (0.40-1.00); Glomerular Filtration Rate >60 (60-); Glucose, Blood 82 mg/dL (70-99); Magnesium, Blood 1.6 mg/dL (1.6-2.4); Phosphorus, Blood 3.1 mg/dL (2.5-4.9); Potassium, Blood 3.3 mmol/L (3.5-5.5); Sodium, Blood 142 mmol/L (136-145)
--- NOTE | 2019-10-31 07:42 | NUR ---
10/31/19 0530 SLEPT WELL WITH ONLY 2 BMS LAST NIGHT. STATES SHE FEELS BETTER TODAY. VITALS STABLE.
[2019-11-01 05:03] LABS: Albumin, Blood 2.4 g/dL (3.4-5.0); Anion Gap 5 mmol/L (6-16); Blood Urea Nitrogen 7 mg/dL (8-24); CO2, Blood 25 mmol/L (21-32); Chloride, Blood 112 mmol/L (98-108); Creatinine, Blood 0.88 mg/dL (0.40-1.00); Glomerular Filtration Rate >60 (60-); Glucose, Blood 80 mg/dL (70-99); Magnesium, Blood 1.9 mg/dL (1.6-2.4); Phosphorus, Blood 2.5 mg/dL (2.5-4.9); Potassium, Blood 3.6 mmol/L (3.5-5.5); Sodium, Blood 142 mmol/L (136-145)
--- NOTE | 2019-11-01 06:03 | NUR ---
SHIFT SUMMARY- PT. A&O, INDEPENDENT IN ROOM. HAD NO ACUTE CHANGES OVERNIGHT. MEDICATED WITH IMODIUM PER PT. REQUEST. PT. STATES LIQUID STOOLS INPROVING FROM YESTERDAY. ASLEEP T/O THE NIGHT, NO APPARENT DISTRESS NOTED. DENIED ANY C/O PAIN OR DISCOMFORT. VSS AND IV FUIDS INFUSING. CALL LIGHT WITHIN REACH AND SIDE RAILS UPX2. WILL CONT TO MONITOR.
[2019-11-01] MEDS ORDERED: Banatrol1 EACH PO (12:16)
[2019-11-01] MEDS ORDERED: LOPE2C PO (12:17)
[2019-11-01] MEDS ORDERED: POTA10T PO (12:18)
[2019-11-01] MEDS ORDERED: XARELTO15 MG PO (12:19)
--- NOTE | 2019-11-01 17:28 | NUR ---
PT DISCHARGED 1454 WITH DC INSTRUCTIONS. WHEELCHAIR ESCORT OUTSIDE; FRIEND TO DRIVE PT HOME. PT'S LOOSE STOOL SLOWING DOWN WITH ONLY 2 LOOSE STOOLS TODAY. PT STATES SHE FEELS WELL ENOUGH TO GO HOME. AND IS PREPAIRED TO STAY HYDRATED AND REPLENISH ELECTROLYTES.
== END 2019-11-01 14:55 | disposition home or self-care (01) | DRG 372 ==
LOC: ER 19:12 → ICUW 10-25 01:06 → ERHOLD 10-25 01:06 → MEDS 10-25 01:06 → ICUW 10-25 02:20 → MEDS 10-25 09:43
PROVIDERS: Emergency Medicine; Internal Medicine; Nurse Practitioner Acute Care; ADMIT Internal Medicine
DX: A02.0 Salmonella enteritis (principal); K56.1 Intussusception; E86.1 Hypovolemia; I82.461 Acute embolism and thrombosis of right calf muscular vein; E87.6 Hypokalemia; E83.39 Other disorders of phosphorus metabolism; I95.9 Hypotension, unspecified; Z20.828 Contact with and (suspected) exposure to other viral communicable diseases; Z87.891 Personal history of nicotine dependence
CPT/HCPCS: 0097U; 0202U; 36415; 51701; 71045; 74177; 80048; 80053; 80069; 81001; 82330; 83605; 83735; 84100; 85025; 85379; 87040; 93970; 94762; 96361-59; 96365-59; 96375; 96375-59; 97110; 97161; 99285-25; A9270; J0744; J1650; J2405; J2543; J2765; J3010; J3475; J3480; J7030; J7050; J7060; J7120; Q9967; U0002

== ENCOUNTER → 2020-05-11 | Outpatient (CLI) | payer OTHER ==
[~2020-05-11] MED LIST changes: +Banatrol1 EACH PO; +IBUP200 PO; +LOPE2C PO; +POTA10T PO; +XARELTO15 MG PO
[2020-05-11 15:24] LABS: BASOPHILS ABSOLUTE AUTO 0.05 K/mm3 (0.00-0.23); BASOPHILS PERCENT AUTO 1 % (0-2); EOSINOPHILS ABSOLUTE AUTO 0.19 K/mm3 (0.00-0.68); EOSINOPHILS PERCENT AUTO 5 % (0-6); Hematocrit 37.9 % (33.0-51.0); Hemoglobin 12.4 g/dL (11.5-16.0); IMMATURE GRAN ABSOLUTE AUTO 0.01 K/mm3 (0.00-0.10); IMMATURE GRAN PERCENT AUTO 0 % (0-1); LYMPHOCYTES ABSOLUTE AUTO 1.08 K/mm3 (0.84-5.20); LYMPHOCYTES PERCENT AUTO 30 % (21-46); MONOCYTES ABSOLUTE AUTO 0.38 K/mm3 (0.16-1.47); MONOCYTES PERCENT AUTO 10 % (4-13); Mean Corpuscular HGB 31.2 pg (26.0-34.0); Mean Corpuscular HGB Conc 32.7 g/dL (31.5-36.5); Mean Corpuscular Volume 95 fL (80-100); Mean Platelet Volume 10.7 fL (9.1-12.4); NEUTROPHILS ABSOLUTE AUTO 1.95 K/mm3 (1.96-9.15); NEUTROPHILS PERCENT AUTO 53 % (41-73); Platelet Count 256 K/mm3 (150-400); RDW Coefficient Variation 12.1 % (11.7-14.2); RDW Standard Deviation 42.3 fL (35.1-46.3); Red Blood Cell Count 3.98 M/mm3 (3.80-5.20); White Blood Cell Count 3.66 K/mm3 (4.00-11.30)
[2020-05-11 15:57] LABS: Alanine Aminotransfer (ALT/SGP 29 U/L (12-78); Albumin, Blood 3.6 g/dL (3.4-5.0); Alk Phos 89 U/L (50-136); Anion Gap 4 mmol/L (6-16); Aspartate Aminotrans (AST/SGOT 22 U/L (12-37); Bilirubin, Total 0.6 mg/dL (0.1-1.0); Blood Urea Nitrogen 14 mg/dL (8-24); Bun/Creatinine Ratio 16.2 (12.0-20.0); CO2, Blood 27 mmol/L (21-32); Chloride, Blood 109 mmol/L (98-108); Creatinine, Blood 0.86 mg/dL (0.40-1.00); Globulin, Blood 3.5 g/dL (2.2-4.0); Glomerular Filtration Rate >60 (60-); Glucose, Blood 78 mg/dL (70-99); Potassium, Blood 4.2 mmol/L (3.5-5.5); Sodium, Blood 140 mmol/L (136-145); Total Protein, Blood 7.1 g/dL (6.4-8.2)
== END ==
LOC: LAB 09:24 → LAB SHORT 09:24
PROVIDERS: Hospitalist
DX: K90.89 Other intestinal malabsorption (principal)
CPT/HCPCS: 80053; 82306; 82607; 85025

== ENCOUNTER → 2020-12-22 | Outpatient (CLI) | payer OTHER ==
[2020-12-22 15:39] LABS: BASOPHILS ABSOLUTE AUTO 0.08 K/mm3 (0.00-0.23); BASOPHILS PERCENT AUTO 2 % (0-2); EOSINOPHILS ABSOLUTE AUTO 0.16 K/mm3 (0.00-0.68); EOSINOPHILS PERCENT AUTO 3 % (0-6); Hematocrit 35.3 % (33.0-51.0); Hemoglobin 11.8 g/dL (11.5-16.0); IMMATURE GRAN PERCENT AUTO 0 % (0-1); LYMPHOCYTES ABSOLUTE AUTO 1.21 K/mm3 (0.84-5.20); LYMPHOCYTES PERCENT AUTO 26 % (21-46); MONOCYTES ABSOLUTE AUTO 0.41 K/mm3 (0.16-1.47); MONOCYTES PERCENT AUTO 9 % (4-13); Mean Corpuscular HGB 32.1 pg (26.0-34.0); Mean Corpuscular HGB Conc 33.4 g/dL (31.5-36.5); Mean Corpuscular Volume 96 fL (80-100); Mean Platelet Volume 10.7 fL (9.1-12.4); NEUTROPHILS ABSOLUTE AUTO 2.86 K/mm3 (1.96-9.15); NEUTROPHILS PERCENT AUTO 61 % (41-73); Platelet Count 248 K/mm3 (150-400); RDW Coefficient Variation 12.5 % (11.7-14.2); Red Blood Cell Count 3.68 M/mm3 (3.80-5.20); White Blood Cell Count 4.72 K/mm3 (4.00-11.30)
[2020-12-22 15:53] LABS: Alanine Aminotransfer (ALT/SGP 23 U/L (12-78); Albumin, Blood 3.4 g/dL (3.4-5.0); Albumin/Globulin Ratio 0.9 (0.8-1.8); Alk Phos 79 U/L (50-136); Anion Gap 6 mmol/L (6-16); Aspartate Aminotrans (AST/SGOT 23 U/L (12-37); Bilirubin, Total 0.5 mg/dL (0.1-1.0); Blood Urea Nitrogen 17 mg/dL (8-24); Bun/Creatinine Ratio 19.9 (12.0-20.0); CO2, Blood 26 mmol/L (21-32); Calcium, Blood 9.1 mg/dL (8.5-10.1); Chloride, Blood 107 mmol/L (98-108); Creatinine, Blood 0.86 mg/dL (0.40-1.00); Globulin, Blood 3.8 g/dL (2.2-4.0); Glomerular Filtration Rate >60 (60-); Glucose, Blood 94 mg/dL (70-99); Potassium, Blood 4.2 mmol/L (3.5-5.5); Sodium, Blood 139 mmol/L (136-145); Total Protein, Blood 7.2 g/dL (6.4-8.2)
== END ==
LOC: LAB 11:24 → LAB SHORT 11:24
PROVIDERS: Hospitalist
DX: I95.89 Other hypotension (principal); Z88.2 Allergy status to sulfonamides; Z88.5 Allergy status to narcotic agent
CPT/HCPCS: 80053; 85025

== ENCOUNTER → 2022-09-28 | Outpatient (CLI) | payer OTHER ==
[2022-09-28 19:11] LABS: BASOPHILS ABSOLUTE AUTO 0.09 K/mm3 (0.00-0.23); BASOPHILS PERCENT AUTO 2 % (0-2); EOSINOPHILS ABSOLUTE AUTO 0.29 K/mm3 (0.00-0.68); EOSINOPHILS PERCENT AUTO 8 % (0-6); Hematocrit 33.4 % (33.0-51.0); IMMATURE GRAN ABSOLUTE AUTO 0.01 K/mm3 (0.00-0.10); IMMATURE GRAN PERCENT AUTO 0 % (0-1); LYMPHOCYTES ABSOLUTE AUTO 1.19 K/mm3 (0.84-5.20); LYMPHOCYTES PERCENT AUTO 32 % (21-46); MONOCYTES ABSOLUTE AUTO 0.39 K/mm3 (0.16-1.47); MONOCYTES PERCENT AUTO 11 % (4-13); Mean Corpuscular HGB 30.4 pg (26.0-34.0); Mean Corpuscular HGB Conc 32.9 g/dL (31.5-36.5); Mean Corpuscular Volume 92 fL (80-100); Mean Platelet Volume 10.9 fL (9.1-12.4); NEUTROPHILS ABSOLUTE AUTO 1.76 K/mm3 (1.96-9.15); NEUTROPHILS PERCENT AUTO 47 % (41-73); Platelet Count 224 K/mm3 (150-400); RDW Coefficient Variation 12.8 % (11.7-14.2); RDW Standard Deviation 43.4 fL (35.1-46.3); Red Blood Cell Count 3.62 M/mm3 (3.80-5.20); White Blood Cell Count 3.73 K/mm3 (4.00-11.30)
[2022-09-28 19:23] LABS: Albumin, Blood 3.4 g/dL (3.4-5.0); Albumin/Globulin Ratio 1.2 (0.8-1.8); Bilirubin, Total 0.3 mg/dL (0.1-1.0); Bun/Creatinine Ratio 16.1 (12.0-20.0); Calcium, Blood 8.5 mg/dL (8.5-10.1); Creatinine, Blood 0.87 mg/dL (0.40-1.00); Globulin, Blood 2.8 g/dL (2.2-4.0); Potassium, Blood 4.3 mmol/L (3.5-5.5); Total Protein, Blood 6.2 g/dL (6.4-8.2)
== END ==
LOC: LAB 17:25 → LAB SHORT 17:25
PROVIDERS: Hospitalist
DX: Z00.00 Encounter for general adult medical examination without abnormal findings (principal); K90.89 Other intestinal malabsorption
CPT/HCPCS: 80053; 85025

== ENCOUNTER → 2024-01-28 | Outpatient (CLI) | payer OTHER ==
[2024-01-28 14:57] LABS: BASOPHILS ABSOLUTE AUTO 0.08 K/mm3 (0.00-0.23); BASOPHILS PERCENT AUTO 2 % (0-2); EOSINOPHILS ABSOLUTE AUTO 0.26 K/mm3 (0.00-0.68); EOSINOPHILS PERCENT AUTO 5 % (0-6); Hematocrit 35.4 % (33.0-51.0); Hemoglobin 11.8 g/dL (11.5-16.0); IMMATURE GRAN ABSOLUTE AUTO 0.02 K/mm3 (0.00-0.10); IMMATURE GRAN PERCENT AUTO 0 % (0-1); LYMPHOCYTES ABSOLUTE AUTO 1.18 K/mm3 (0.84-5.20); LYMPHOCYTES PERCENT AUTO 24 % (21-46); MONOCYTES ABSOLUTE AUTO 0.57 K/mm3 (0.16-1.47); MONOCYTES PERCENT AUTO 11 % (4-13); Mean Corpuscular HGB 30.6 pg (26.0-34.0); Mean Corpuscular HGB Conc 33.3 g/dL (31.5-36.5); Mean Corpuscular Volume 92 fL (80-100); Mean Platelet Volume 10.7 fL (9.1-12.4); NEUTROPHILS ABSOLUTE AUTO 2.88 K/mm3 (1.96-9.15); NEUTROPHILS PERCENT AUTO 58 % (41-73); Platelet Count 253 K/mm3 (150-400); RDW Coefficient Variation 13.9 % (11.7-14.2); RDW Standard Deviation 46.8 fL (35.1-46.3); Red Blood Cell Count 3.86 M/mm3 (3.80-5.20); White Blood Cell Count 4.99 K/mm3 (4.00-11.30)
[2024-01-28 19:31] LABS: Albumin, Blood 3.5 g/dL (3.4-5.0); Albumin/Globulin Ratio 1.1 (0.8-1.8); Bilirubin, Total 0.5 mg/dL (0.1-1.0); Bun/Creatinine Ratio 21.2 (12.0-20.0); Calcium, Blood 8.9 mg/dL (8.5-10.1); Creatinine, Blood 0.94 mg/dL (0.40-1.00); Globulin, Blood 3.2 g/dL (2.2-4.0); Total Protein, Blood 6.7 g/dL (6.4-8.2)
== END | disposition home or self-care (01) ==
LOC: LAB SHORT 08:45 → LAB 08:45
PROVIDERS: Hospitalist
DX: K90.89 Other intestinal malabsorption (principal); E87.1 Hypo-osmolality and hyponatremia
CPT/HCPCS: 80053; 82306; 82607; 82728; 85025